=== PATIENT | female | born 1990 | race Hispanic/Latino ===

== ENCOUNTER 2023-02-15 21:40 | Emergency (ER) | payer OTHER ==
[~2023-02-15] VITALS: Ht 165.1 cm; Wt 71.1 kg
[2023-02-15] MEDS ORDERED: D-ME1CAP36 PO (21:46)
[2023-02-15] MEDS ORDERED: ACETAMINOPHEN 500 MG TAB PO ONE (22:55)
[2023-02-15] MEDS ORDERED: AMOXICILLIN 500 MG CAP PO ONE (23:15)
[2023-02-15] MEDS ORDERED: AMOX500C PO (23:15)
[2023-02-15 23:40] VITALS: BP 121/64; TEMP 101; O2SAT 99
== END 2023-02-15 23:41 | disposition home or self-care (01) ==
LOC: M ED 21:40
DX: J02.0 Streptococcal pharyngitis (principal); Z79.2 Long term (current) use of antibiotics; Z79.899 Other long term (current) drug therapy